=== PATIENT | female | born 1970 | race Caucasian/White ===

== ENCOUNTER → 2018-09-17 | Day surgery (SDC) | payer BC, OTHER ==
[2018-09-11 14:05] VITALS: BMI 23.8
[~2018-09-17] MED LIST: ALPRAZolam 0.25 MG TAB PO PRN; ALPRAZolam 0.5 MG TAB PO PRN; ASPIRIN 325 MG TAB PO STA; ATORVASTATIN 80 MG TAB PO STA; HEPARIN SODIUM 1,000 UN/ML (10ML VL) IV ONE; HEPARIN SODIUM 1,000 UN/ML (10ML VL) ONE; IOPAMIDOL-370 100ML BTL INJ ONE; LIDOCAINE 1% INJ 10MG/ML (20 ML MDV) ONE; LIDOCAINE 1% INJ 10MG/ML (20 ML MDV) SQ ONE; MIDAZOLAM 2 MG/2 ML VIAL IV ONE; NITROGLYCERIN SL TABS 0.4 MG TAB SUBLINGUAL PRN; SODIUM CHLORIDE 0.9% 1,000 ML IV SCH; SODIUM CHLORIDE 0.9% 1,000 ML in EMPTY BAG 1 BAG IV ONE; VERAPAMIL 2.5 MG/ML 2 ML AMP ONE
[2018-09-17 09:53] VITALS: RESP 18; TEMP 98.3
[2018-09-17] MEDS: VERAPAMIL SYRINGE (5 MG/10 ML) INTRAARTER ONE ×3 (10:34→10:45)
--- NOTE | 2018-09-17 11:36 | CC ---
CARDIAC CATHETERIZATION REPORT DATE OF SERVICE: 09/17/2018 PROCEDURE: Left heart catheterization and coronary angiography. PERFORMED BY: Dr. Desean Beach. Moderate conscious sedation time was 19 minutes. Patient was administered Versed, oxygen saturation, hemodynamics and EKG were monitored closely. CLINICAL INFORMATION: Mrs Alondra Killian is a 48-year-old lady with a recent diagnosis of dilated cardiomyopathy and ventricular tachycardia, on a life vest. She was advised coronary angiography after due discussion and evaluation by Dr. Javier. I met the patient last week and reviewed with her the rationale, risks, benefits, and options related to cardiac cath. She understood all details and wished to proceed with the procedure. PROCEDURE NOTE: Under local anesthesia and strict aseptic precautions, a 6-Setswana introducer was placed in the right radial artery. Using a JL3.5 and JR3.5 diagnostic catheters, I performed selective coronary angiography and the same right catheter was used to check LV pressures. LV gram was not performed. The catheter and sheath was taken out and a VASC band applied as per protocol. The saturation of the fingers of the right hand was 96%. Patient received 1500 units of heparin intravenously. She tolerated the procedure well without complications. CARDIAC CATHETERIZATION FINDINGS: The left ventricular end-diastolic pressure was 6 mmHg without any gradient across the aortic valve. CORONARY ANGIOGRAPHY FINDINGS: RIGHT CORONARY ARTERY: Large dominant vessel distally bifurcates into PDA and PLV. No significant disease. LEFT MAIN CORONARY ARTERY: Short patent disease-free vessel that bifurcates into LAD and circumflex. LEFT ANTERIOR DESCENDING CORONARY ARTERY: Good caliber vessel extends along the anterior wall, gives off septal and diagonal branches, runs all the way to the apex, has minor irregularities, no significant disease. LEFT POSTERIOR CIRCUMFLEX CORONARY ARTERY: A nondominant vessel, gives off a single obtuse marginal that runs laterally and then continues distally as a posterolateral branch. Minor irregularities. No significant disease. LEFT VENTRICULOGRAM: This was not performed. FINAL IMPRESSION: This patient has a right dominant system. Normal filling pressures. No gradient across the aortic valve and no obstructive coronary artery disease. RECOMMENDATION: Findings were discussed with the patient and family. She does not have any obstructive CAD. Procedure was performed uneventfully. She will be discharged around 6 pm and follow up with Dr. Javier next Saturday for a followup office visit. We. She will continue current medications and Life Vest. Discharge instructions were also given. MMODL / IJN: [id number] /
[2018-09-17 18:34] VITALS: BP 110/62; PULSE 74
--- NOTE | 2018-09-19 20:01 | ECHOF ---
Referral Reason:R/O CARDIOMYOPATHY MEASUREMENTS -------- HEIGHT: 165.1 cm WEIGHT: 64.9 kg BP: 95/69 RVIDd: 1.6 cm (< 3.3) IVSd: 1.1 cm (0.6 - 1.1) LVIDd: 5.8 cm (3.9 - 5.3) LVPWd: 1.1 cm (0.6 - 1.1) IVSs: 1.2 cm LVIDs: 4.9 cm LVPWs: 1.2 cm LAESV Index (A-L): 12.98 ml/m Ao Diam: 3.7 cm (2.0 - 3.7) AV Cusp: 1.6 cm (1.5 - 2.6) LA Diam: 1.9 cm (2.7 - 3.8) MV EXCURSION: 20.868 mm (> 18.000) MV EF SLOPE: 90 mm/s (70 - 150) EPSS: 1.4 cm MV E Michael: 0.59 m/s MV DecT: 204 ms MV A Michael: 0.65 m/s MV E/A Ratio: 0.91 RAP: 5.00 mmHg RVSP: 18.53 mmHg FINDINGS -------- Sinus rhythm. This was a technically adequate study. The left ventricle is moderately dilated. Left ventricular wall thickness is normal. There is mod erate global hypokinesis of LV . Overall left ventricular systolic function is moderate-severely im paired with, an EF between 30 - 35 %. 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 The right ventricle is normal in size and function. Normal LA size by volume 22+/-6 ml/m2. The right atrium is normal in size. 3 ml of Lumason was utilized for enhancement of images. Aortic valve is trileaflet and is mildly thickened. There is no evidence of aortic regurgitation. There is no evidence of aortic stenosis. The mitral valve leaflets are mildly thickened. Mild mitral annular calcification present. Mild-t o-moderate mitral regurgitation is present. Trace tricuspid regurgitation present. Right ventricular systolic pressure is normal at < 35 mmHg. There is no evidence of pulmonary hypertension. Trace/mild (physiologic) pulmonic regurgitation. The aortic root size is normal. Normal inferior vena cava with normal inspiratory collapse consistent with estimated right atrial pre ssure of 5 mmHg. There is no pericardial effusion. CONCLUSIONS -------- 1. Sinus rhythm. 2. This was a technically adequate study. 3. The left ventricle is moderately dilated. 4. Left ventricular wall thickness is normal. 5. There is moderate global hypokinesis of LV . 6. Overall left ventricular systolic function is moderate-severely impaired with, an EF between 30 - 35 %. 7. 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 8. Normal LA size by volume 22+/-6 ml/m2. 9. 3 ml of Lumason was utilized for enhancement of images. 10. Aortic valve is trileaflet and is mildly thickened. 11. The mitral valve leaflets are mildly thickened. 12. Mild mitral annular calcification present. 13. Aveh-pt-bhyxgsts mitral regurgitation is present. 14. Trace tricuspid regurgitation present. 15. Right ventricular systolic pressure is normal at < 35 mmHg. 16. There is no evidence of pulmonary hypertension. 17. Trace/mild (physiologic) pulmonic regurgitation. 18. The aortic root size is normal. 19. There is no pericardial effusion. DOCTOR OF OPTOMETRY: Tru Hebert RDCS
== END | disposition home or self-care (01) ==
LOC: CATHCVL 09:32
PROVIDERS: ATTEND Internal Medicine Interventional Cardiology
DX: I08.1 Rheumatic disorders of both mitral and tricuspid valves (principal); I42.0 Dilated cardiomyopathy; I47.2 Ventricular tachycardia; I50.21 Acute systolic (congestive) heart failure; Z79.899 Other long term (current) drug therapy
CPT/HCPCS: 93306; 93458; 81025; C1894 ×2; C1769; J2250; J2001; J1644; Q9950; Q9967

== ENCOUNTER 2018-10-23 13:22 | Observation (INO) | payer BC, OTHER ==
[2018-10-23] MEDS ORDERED: ASPIRIN 81 MG PO STA (13:36)
[2018-10-23] MEDS ORDERED: NITROGLYCERIN SL TABS 0.4 MG TAB SUBLINGUAL STA (13:36)
--- NOTE | 2018-10-23 13:39 | ED ---
Chest Pain HPI - General Chief Complaint: Chest Pain Stated Complaint: chest pain Time Seen by Provider: 10/23/18 13:30 Source: patient, RN notes reviewed Mode of arrival: ambulatory - History of Present Illness Initial Comments: Is a 48-year-old female history of a dilated heart but no prior history of heart attacks lung problems she is a nonsmoker no family history of heart disease at early age who for the past 3 days had intermittent episodes of achy chest discomfort going to her left arm. It is worse in 6-7/10 severity currently is 4/10 she has associated shortness of breath with it and exertional dyspnea the symptoms occur both at rest and with activity. No cough no fevers chills sweats nausea vomiting or other symptoms reported. MD Complaint: chest pain - Related Data Home Medications Medication Instructions Recorded Confirmed Atorvastatin [Lipitor] 10 mg PO W/SUPPER 10/23/18 10/23/18 Carvedilol [Coreg] 1.5625 mg PO BID 10/23/18 10/23/18 Furosemide [Lasix] 20 mg PO DAILY 10/23/18 10/23/18 Ivabradine HCl [Corlanor] 5 mg PO DAILY 10/23/18 10/23/18 Spironolactone [Aldactone] 25 mg PO DAILY 10/23/18 10/23/18 Allergies Allergy/AdvReac Type Severity Reaction Status Date / Time No Known Allergies Allergy Verified 10/23/18 13:41 Review of Systems ROS Statement: Those systems with pertinent positive or pertinent negative responses have been documented in the HPI. ROS Other: All systems not noted in ROS Statement are negative. EKG Findings - EKG Results: EKG: interpreted by LEMUEL, sinus rhythm (Sinus rhythm rate is 76. Ago 134 QRS duration 74 QT since QTC 396/[address] this time.) Past Medical History Past Medical History: Chest Pain / Angina Additional Past Medical History / Comment(s): enlarged heart, SOB, History of Any Multi-Drug Resistant Organisms: None Reported Past Surgical History: Cholecystectomy Past Anesthesia/Blood Transfusion Reactions: No Reported Reaction Past Psychological History: No Psychological Hx Reported Smoking Status: Never smoker Past Alcohol Use History: None Reported Past Drug Use History: None Reported - Past Family History Mother Family Medical History: No Reported History General Exam - General Exam Comments Initial Comments: This a well-developed well-nourished awake alert oriented 3 female General appearance: alert, anxious Head exam: Present: atraumatic, normocephalic, normal inspection Eye exam: Present: normal appearance, PERRL, EOMI. Absent: scleral icterus, conjunctival injection, periorbital swelling ENT exam: Present: normal exam, mucous membranes moist Neck exam: Present: normal inspection, full ROM, other (No stridor JVD or bruits). Absent: tenderness, meningismus, lymphadenopathy Respiratory exam: Present: normal lung sounds bilaterally. Absent: respiratory distress, wheezes, rales, rhonchi, stridor, chest wall tenderness Cardiovascular Exam: Present: regular rate, normal rhythm, normal heart sounds. Absent: systolic murmur, diastolic murmur, rubs, gallop, clicks GI/Abdominal exam: Present: soft, normal bowel sounds. Absent: distended, tenderness, guarding, rebound, rigid Extremities exam: Present: normal inspection, full ROM, normal capillary refill. Absent: tenderness, pedal edema, joint swelling, calf tenderness Back exam: Present: normal inspection Neurological exam: Present: alert, oriented X3, CN II-XII intact Psychiatric exam: Present: normal affect, normal mood Skin exam: Present: warm, dry, intact, normal color. Absent: rash Course Vital Signs 10/23/18 10/23/18 10/23/18 13:25 13:34 13:52 Temperature 98 F Pulse Rate 73 74 Pulse Rate [ 72 Bilateral Director Auto ] Respiratory 18 18 18 Rate Blood Pressure 117/77 106/61 O2 Sat by Pulse 99 100 Oximetry 10/23/18 14:54 Temperature Pulse Rate 72 Pulse Rate [ Bilateral Director Auto ] Respiratory 18 Rate Blood Pressure 103/72 O2 Sat by Pulse 100 Oximetry - Reevaluation(s) Reevaluation #1: 10/23/18 15:48 Reevaluation the patient after the initial treatment reveals patient is pain- free at this time she did seem to respond to the nitroglycerin. Reevaluation #2: 10/23/18 15:49 telephone cleaner indicated for ruling out dysrhythmia. Patient did present with complaints of chest pain agreed to her left arm. Initial rate was 75 with no evidence of atrial or ventricular dysrhythmia. [facility] are reviewed no acute findings. I did discuss findings with the patient and her . Patient will be admitted for evaluation by cardiology at [facility] discuss case Dr. Cotto who and to the emergency department see the patient. The presentation is consistent with acute coronary syndrome. Critical Care Time Critical Care Time: Yes Critical Care Time: 30 minutes of critical care time which includes initial presentation with history physical labs x-rays several reevaluation the patient response to therapy. Discussed with the family regarding findings discussion with the admitting physician admission orders and documentation of the above Disposition Clinical Impression: ACS (acute coronary syndrome), Unstable angina pectoris Disposition: ADMITTED IP TO THIS HOSP Condition: Fair Referrals: Willy Li DO [Primary Care Provider] - 1-2 days
[2018-10-23 14:09] LABS: Basophils % (A) 1 %; Eosinophils # (A) 0.1 k/uL (0-0.7); Eosinophils % (A) 3 %; HCT 40.1 % (34.0-46.0); HGB 14.1 gm/dL (11.4-16.0); Lymphocytes # (A) 1.3 k/uL (1.0-4.8); Lymphocytes % (A) 28 %; MCH 28.5 pg (25.0-35.0); MCV 81.4 fL (80.0-100.0); Mean Platelet Volume 10.1; Monocytes # (A) 0.3 k/uL (0-1.0); Monocytes % (A) 7 %; Neutrophils # (A) 2.7 k/uL (1.3-7.7); Neutrophils % (A) 59 %; Platelet Count 174 k/uL (150-450); RBC 4.93 m/uL (3.80-5.40); RDW 15.6 % (11.5-15.5); WBC 4.5 k/uL (3.8-10.6)
[2018-10-23 14:23] LABS: Albumin 4.2 g/dL (3.5-5.0); Calcium 9.3 mg/dL (8.4-10.2); Magnesium 1.9 mg/dL (1.6-2.3); Potassium 3.9 mmol/L (3.5-5.1); Total Bilirubin 0.6 mg/dL (0.2-1.3); Total Protein 7.3 g/dL (6.3-8.2)
--- NOTE | 2018-10-23 14:30 | XR ---
EXAMINATION TYPE: XR chest 2V DATE OF EXAM: 10/23/2018 COMPARISON: Prior chest x-ray 08/15/2014 HISTORY: Chest pain TECHNIQUE: Frontal and lateral views of the chest are obtained. FINDINGS: There is no focal air space opacity, pleural effusion, or pneumothorax seen. The cardiac silhouette size is within normal limits. Surgical clips are present in the right upper quadrant. Ther e are overlying cardiac leads. There is a spinal curvature present. Strand-like densities in the uppe r lobes are stable. The aorta is dense. The osseous structures are intact. IMPRESSION: No acute cardiopulmonary process. Probable lung scarring.
[2018-10-23 14:38] LABS: D-Dimer 0.49 mg/L FEU (<0.60); INR 0.9 (<1.2); Partial Thromboplastin Time 25.5 sec (22.0-30.0); Prothrombin Time 10.2 sec (9.0-12.0)
[2018-10-23] MEDS ORDERED: HEPARIN SODIUM,PORCINE 5,000 UNIT/ML 1 ML VIAL IV ONE (15:52)
[2018-10-23] MEDS ORDERED: NITROGLYCERIN SL TABS 0.4 MG TAB SUBLINGUAL PRN (15:52)
[2018-10-23] MEDS ORDERED: NITROGLYCERIN OINT 1 INCH/GM PACKET TOPICAL STA (15:55)
[2018-10-23] MEDS ORDERED: HEPARIN SOD,PORK IN 0.45% NACL 25,000 UNIT in 0.45% NACL 1 250ML.BAG IV SCH (16:00)
[2018-10-23] MEDS ORDERED: SODIUM CHLORIDE 0.9% 1,000 ML IV SCH (16:00)
[2018-10-23] MEDS ORDERED: TEMAZEPAM 15 MG CAP PO PRN (16:32)
[2018-10-23] MEDS ORDERED: ATORVASTATIN 10 MG TAB PO SCH (17:30)
--- NOTE | 2018-10-23 18:09 | HP ---
HISTORY AND PHYSICAL DATE OF SERVICE: 10/23/2018 HISTORY OF PRESENT ILLNESS: This 48-year-old woman with a past medical history of multiple medical problems, including dilated cardiomyopathy, possibly viral, history of shortness of breath, cholecystomy, being followed by Dr. Li in the outpatient setting, has also been evaluated by Dr. Javier in the outpatient setting. Currently the patient is complaining of left-sided chest pain for the last 3 days, intermittent episodes, which was aching to sharp in character, 7 to 10 in intensity, radiating to the upper arm and shoulder. The patient also had some exertional breath sounds and the patient came to [facility] and was admitted for further evaluation and treatment. EKG showed nonspecific ST-T changes. Troponins are negative at this time. There is no history of any fever, rigor or chills. No history of headache, loss of consciousness, seizures. The patient also reports significant stress. PAST MEDICAL HISTORY: 1. History of chest pain, angina. 2. History of dilated cardiomyopathy. 3. History of cholecystectomy. MEDICATIONS: Medications prior to admission include: 1. Aldactone 25 mg p.o. daily. 2. Corlanor 5 mg p.o. daily. 3. Coreg 1.5625 mg p.o. b.i.d. 4. Lasix 20 mg p.o. daily. 5. Lipitor 10 mg at supper. ALLERGIES: NONE. FAMILY HISTORY: No history of heart disease or strokes in the family. SOCIAL HISTORY: No history of smoking. No history of alcohol intake. REVIEW OF SYSTEMS: ENT: No diminished hearing. No diminished vision. CARDIOVASCULAR SYSTEM: As mentioned earlier. RESPIRATORY SYSTEM: As mentioned earlier. GI: No nausea, vomiting. No diarrhea. : No dysuria or retention. NERVOUS SYSTEM: No numbness, weakness. ALLERGY/IMMUNOLOGY: No asthma, hayfever. MUSCULOSKELETAL: As mentioned earlier. HEMATOLOGY/ONCOLOGY/PSYCHIATRY: As mentioned earlier. PHYSICAL EXAMINATION: Patient is alert, oriented x3. Pulse 72, blood pressure 103/72, respiration 18, temperature normal, pulse ox 100% on 2 L. HEENT: Conjunctivae normal. NECK: No jugular venous distention. No carotid bruit. No lymph node enlargement. CARDIOVASCULAR SYSTEM: S1, S2 muffled. No S3. No S4. RESPIRATORY SYSTEM: Breath sounds diminished at the bases. No rhonchi. No crackles. ABDOMEN: Soft, non-tender. No mass palpable. LEGS: No edema. No swelling. NERVOUS SYSTEM: Higher functions as mentioned earlier. Moves all 4 limbs. No focal motor or sensory deficit. LYMPHATICS: No lymph node palpable in neck, axillae or groin. SKIN: No ulcer, rash, bleeding. JOINTS: No active deforming arthropathy. LABS: CBC within normal limits. BMP shows glucose 100. Troponin noted. EKG noted, reviewed. ASSESSMENT: 1. Chest pain, possible unstable angina. 2. History of dilated cardiomyopathy. 3. History of chest pain, angina. 4. History of cholecystectomy. RECOMMENDATIONS AND DISCUSSION: In this 48-year-old woman who presented with multiple medical issues, we will monitor the patient closely, continue the current management, continue with symptomatic treatment, unstable angina protocol. The patient had a previous cardiac catheterization also. However, I would recommend repeat troponins. Cardiology consultation. Symptomatic treatment. Resume the home medications. Prognosis guarded because of multiple complex medical issues. Further recommendations to follow. A copy of this dictation is being forwarded to Dr. Li, who is the primary physician. MMODL / IJN: [id number] /
[2018-10-23] MEDS: NITROGLYCERIN OINT 1 INCH/GM PACKET TOPICAL SCH ×2 (19:42→22:36)
[2018-10-23] MEDS: CARVEDILOL 1.563 MG TAB PO SCH (20:38)
[2018-10-23] MEDS ORDERED: CORLANOR 5 MG PO SCH (21:00)
[2018-10-24] MEDS: NITROGLYCERIN OINT 1 INCH/GM PACKET TOPICAL SCH ×2 (05:26→12:44)
[2018-10-24 07:33] VITALS: RESP 16
[2018-10-24 07:53] LABS: Basophils % (A) 1 %; Eosinophils # (A) 0.2 k/uL (0-0.7); Eosinophils % (A) 6 %; HCT 35.5 % (34.0-46.0); HGB 12.3 gm/dL (11.4-16.0); Lymphocytes % (A) 33 %; MCH 28.4 pg (25.0-35.0); MCHC 34.7 g/dL (31.0-37.0); Mean Platelet Volume 9.9; Monocytes # (A) 0.3 k/uL (0-1.0); Monocytes % (A) 9 %; Neutrophils # (A) 1.5 k/uL (1.3-7.7); Neutrophils % (A) 49 %; Platelet Count 142 k/uL (150-450); RBC 4.33 m/uL (3.80-5.40); RDW 15.7 % (11.5-15.5)
--- NOTE | 2018-10-24 07:53 | P.CRDCN ---
History of Present Illness Consult date: 10/24/18 History of present illness: This is a 48-year-old female with history of nonischemic cardiac myopathy and nonsustained V. tach who is wearing a LifeVest at this time. Patient had a cardiac catheterization in August of this year for evaluation of ischemic heart disease. Because of chest pain and also nonsustained V. tach. She was not found to have nonobstructive coronary artery disease. Patient comes now with similar chest pains on the left side is somewhat radiation of the left arm. Her EKGs did not reveal any acute changes. Cardiac enzymes are negative. At this time, Patient is very comfortable. Her d-dimer is within normal limits. No further cardiac workup is suggested. Patient could be discharged home. Follow-up with the Dr. Javier within a week Review of Systems As per the chart Past Medical History Past Medical History: Chest Pain / Angina Additional Past Medical History / Comment(s): enlarged heart, SOB, nonischemic cardiomyopathy, history of ventricular tachycardia History of Any Multi-Drug Resistant Organisms: None Reported Past Surgical History: Cholecystectomy Past Anesthesia/Blood Transfusion Reactions: No Reported Reaction Past Psychological History: No Psychological Hx Reported Smoking Status: Never smoker Past Alcohol Use History: None Reported Past Drug Use History: None Reported - Past Family History Mother Family Medical History: No Reported History Medications and Allergies Home Medications Medication Instructions Recorded Confirmed Type Atorvastatin [Lipitor] 10 mg PO W/SUPPER 10/23/18 10/23/18 History Carvedilol [Coreg] 1.5625 mg PO BID 10/23/18 10/23/18 History Furosemide [Lasix] 20 mg PO DAILY 10/23/18 10/23/18 History Ivabradine HCl [Corlanor] 5 mg PO BID 10/23/18 10/23/18 History Spironolactone [Aldactone] 25 mg PO DAILY 10/23/18 10/23/18 History Allergies Allergy/AdvReac Type Severity Reaction Status Date / Time No Known Allergies Allergy Verified 10/23/18 13:41 Physical Exam Vitals: Vital Signs Temp Pulse Pulse Pulse Resp BP BP 10/24/18 07:15 97.8 F 56 L 16 10/24/18 02:58 18 10/24/18 02:45 97.8 F 50 L 18 88/53 10/23/18 23:51 18 10/23/18 23:32 97.9 F 61 18 91/58 10/23/18 20:00 18 10/23/18 19:12 98.1 F 59 L 18 103/69 10/23/18 16:45 98.1 F 53 L 18 111/77 10/23/18 16:27 60 18 10/23/18 14:54 72 18 103/72 10/23/18 13:52 74 18 106/61 10/23/18 13:34 72 18 10/23/18 13:25 98 F 73 18 117/77 BP Pulse Ox 10/24/18 07:15 95/55 98 10/24/18 02:58 10/24/18 02:45 98 10/23/18 23:51 10/23/18 23:32 98 10/23/18 20:00 10/23/18 19:12 98 10/23/18 16:45 97 10/23/18 16:27 100 10/23/18 14:54 100 10/23/18 13:52 100 10/23/18 13:34 10/23/18 13:25 99 Intake and Output 10/23/18 10/24/18 10/24/18 22:59 06:59 14:59 Intake Total 444 80.993 Balance 444 80.993 Intake: Intake, IV Titration 80.993 Amount Heparin Sod,Pork in 0.45% 80.993 NaCl 25,000 unit In 0.45 % NaCl 1 250ml.bag @ 12 UNITS/KG/HR 7.838 mls/hr IV .Q24H [facility] Rx#: [id number] Oral 444 Other: Voiding Method Toilet Toilet # Voids 1 1 GENERAL EXAM: Patient is alert and oriented and doesn't appear to be in any acute distress HEENT: Normocephalic. Normal reaction of pupils, equal size, normal range of extraocular motion. No erythema or exudates in the throat. NECK: No masses, no nuchal rigidity. CHEST: No chest wall deformity. LUNGS: Equal air entry with no crackles or wheeze. HEART: S1 and S2 normal with no audible mumurs or gallops. Regular rhythm, fem orals equal on both sides.. ABDOMEN: No hepatosplenomegaly, normal bowel sounds, no guarding or rigidity. SKIN: No rashes CENTRAL NERVOUS SYSTEM: No focal deficits. EXTREMITIES: No cyanosis, clubbing or edema. Results 10/23/18 13:45 10/23/18 13:45 Cardiac Enzymes 10/23/18 10/23/18 10/23/18 Range/Units 13:45 13:45 21:09 AST 24 (14-36) U/L Troponin I <0.012 <0.012 (0.000-0.034) ng/mL 10/24/18 Range/Units 01:51 AST (14-36) U/L Troponin I <0.012 (0.000-0.034) ng/mL Coagulation 10/23/18 10/23/18 Range/Units 13:45 21:09 PT 10.2 (9.0-12.0) sec APTT 25.5 84.7 H (22.0-30.0) sec CBC 10/23/18 Range/Units 13:45 WBC 4.5 (3.8-10.6) k/uL RBC 4.93 (3.80-5.40) m/uL Hgb 14.1 (11.4-16.0) gm/dL Hct 40.1 (34.0-46.0) % Plt Count 174 (150-450) k/uL Comprehensive Metabolic Panel 10/23/18 Range/Units 13:45 Sodium 141 (137-145) mmol/L Potassium 3.9 (3.5-5.1) mmol/L Chloride 105 (98-107) mmol/L Carbon Dioxide 26 (22-30) mmol/L BUN 17 (7-17) mg/dL Creatinine 0.92 (0.52-1.04) mg/dL Glucose 100 H (74-99) mg/dL Calcium 9.3 (8.4-10.2) mg/dL AST 24 (14-36) U/L ALT 25 (9-52) U/L Alkaline Phosphatase 86 (38-126) U/L Total Protein 7.3 (6.3-8.2) g/dL Albumin 4.2 (3.5-5.0) g/dL Current Medications Generic Name Dose Route Start Last Admin Trade Name Freq PRN Reason Stop Dose Admin Aspirin 325 mg 10/24/18 09:00 Aspirin PO DAILY CINDY Atorvastatin Calcium 10 mg 10/23/18 17:30 10/23/18 20:38 Lipitor PO Not Given W/SUPPER [facility] Carvedilol 1.563 mg 10/23/18 17:30 10/23/18 20:38 Coreg PO Not Given BID-W/MEALS [facility] Furosemide 20 mg 10/24/18 09:00 Lasix PO DAILY [facility] Heparin Sodium/Sodium Chloride 250 mls @ 7.838 mls/hr 10/23/18 16:00 10/24/18 02:41 25,000 unit/ Sodium Chloride IV 10 units/kg/hr .Q24H CINDY 6.532 mls/hr Titration Protocol 12 UNITS/KG/HR Sodium Chloride 1,000 mls @ 20 mls/hr 10/23/18 16:00 10/23/18 16:26 Saline 0.9% IV 20 mls/hr .Q24H CINDY Administration Nitroglycerin 0.5 inch 10/23/18 18:00 10/24/18 05:26 Nitro-Bid Oint TOPICAL Not Given Q6HR [facility] Nitroglycerin 0.4 mg 10/23/18 15:52 Nitrostat SUBLINGUAL Q5M PRN Chest Pain Corlanor 5mg 5 mg 10/23/18 21:00 10/23/18 20:37 PO 5 mg BID CINDY Administration Spironolactone 25 mg 10/24/18 09:00 Aldactone PO DAILY [facility] Temazepam 15 mg 10/23/18 16:32 Restoril PO HS PRN Insomnia Intake and Output 10/23/18 10/24/18 10/24/18 22:59 06:59 14:59 Intake Total 444 80.993 Balance 444 80.993 Intake: Intake, IV Titration 80.993 Amount Heparin Sod,Pork in 0.45% 80.993 NaCl 25,000 unit In 0.45 % NaCl 1 250ml.bag @ 12 UNITS/KG/HR 7.838 mls/hr IV .Q24H [facility] Rx#: [id number] Oral 444 Other: Voiding Method Toilet Toilet # Voids 1 1 10/23/18 13:45 10/23/18 13:45 EKG Interpretations (text) Sinus rhythm Assessment and Plan (1) Atypical chest pain Current Visit: Yes Status: Acute Code(s): R07.89 - OTHER CHEST PAIN SNOMED Code(s): 127186886 (2) Nonischemic cardiomyopathy Current Visit: Yes Status: Acute Code(s): I42.8 - OTHER CARDIOMYOPATHIES SNOMED Code(s): 37811851 (3) History of ventricular tachycardia Current Visit: Yes Status: Acute Code(s): Z86.79 - PERSONAL HISTORY OF OTHER DISEASES OF THE CIRCULATORY SYSTEM SNOMED Code(s): 033161954123106 Plan: Patient's cardiac enzymes and EKGs are normal. Patient had a normal Cardec cath about 2 months ago. Her d-dimer is normal. Patient is free of any chest pain at this time. Patient will be discharged home and have follow-up with Dr. Javier within a week
[2018-10-24 08:00] LABS: Anion Gap 7 mmol/L; Blood Urea Nitrogen 20 mg/dL (7-17); Calcium 8.8 mg/dL (8.4-10.2); Carbon Dioxide 26 mmol/L (22-30); Chloride 107 mmol/L (98-107); Cholesterol 94 mg/dL (<200); Glucose 91 mg/dL (74-99); HDL Cholesterol 42 mg/dL (40-60); LDL Cholesterol,Calculated 42 mg/dL (0-99); Potassium 3.8 mmol/L (3.5-5.1); Sodium 140 mmol/L (137-145); Triglycerides 52 mg/dL (<150)
[2018-10-24] MEDS: CARVEDILOL 1.563 MG TAB PO SCH (08:24)
[2018-10-24] MEDS ORDERED: FUROSEMIDE 20 MG TAB PO SCH (09:00)
[2018-10-24] MEDS ORDERED: ASPIRIN 325 MG TAB PO SCH (09:00)
[2018-10-24] MEDS ORDERED: CORLANOR 5 MG PO SCH ×2 (09:00→12:00)
[2018-10-24] MEDS ORDERED: SPIRONOLACTONE 25 MG TAB PO SCH ×2 (09:00→12:00)
[2018-10-24 11:52] VITALS: BP 97/62; TEMP 97.6
[2018-10-24 12:04] VITALS: PULSE 72
--- NOTE | 2018-10-25 12:41 | DS ---
DISCHARGE SUMMARY DATE OF SERVICE: 10/24/2018 FINAL DIAGNOSES: 1. Chest pain, myocardial infarction ruled out, possibly musculoskeletal. 2. History of dilated cardiomyopathy. 3. History of chest pain, angina. 4. History of recent cardiac catheterization. 5. History of cholecystectomy. DISCHARGE DISPOSITION: The patient will be discharged in a stable condition with guarded prognosis. HISTORY OF PRESENT ILLNESS: This is a 48-year-old woman with a past medical history of multiple medical problems being followed by Dr. Li in the outpatient setting, was admitted with chest pain. Myocardial infarction ruled out and Cardiology saw the patient. Recommend discharge and continue outpatient followup. Patient had a recent cardiac cath that showed normal coronaries, apparently. On exam, vital signs are stable. CARDIOVASCULAR SYSTEM: S1, S2. ABDOMEN: Soft. NERVOUS SYSTEM: No focal deficits. Discharge diet is cardiac diet. Activity limited until followup. Follow up with Dr. Li in 2-3 days. Follow up with the campus recruiter as recommended. MEDICATIONS: 1. Aldactone 25 mg p.o. daily. 2. Coreg 1.562 mg p.o. b.i.d. 3. Ivabradine 5 mg p.o. b.i.d. 4. Lasix 20 mg p.o. daily. 5. Lipitor 10 mg with supper. MMODL / IJN: [id number] /
== END 2018-10-24 12:47 | disposition home or self-care (01) ==
LOC: EC 13:22 → 1SOBS 15:52
PROVIDERS: ADMIT Hospitalist; ATTEND Hospitalist
DX: R07.89 Other chest pain (principal); I42.0 Dilated cardiomyopathy; I47.2 Ventricular tachycardia; Z79.899 Other long term (current) drug therapy; Z90.49 Acquired absence of other specified parts of digestive tract; Z97.8 Presence of other specified devices
CPT/HCPCS: 96366 ×2; 96376; 96365; 99291; 36415; 93005; 85379; 83880; 80061; 80053; 80048; 82550; 83735; 84484 ×2; 85025 ×2; 85610; 85730 ×2; 71046; G0378 ×2; J1644 ×2

== ENCOUNTER 2019-01-29 10:26 | Day surgery (SDC) | payer BC, OTHER ==
[~2019-01-29 10:26] MED LIST changes: -ALPRAZolam 0.25 MG TAB PO PRN; -ALPRAZolam 0.5 MG TAB PO PRN; -ASPIRIN 325 MG TAB PO STA; -ATORVASTATIN 80 MG TAB PO STA; -HEPARIN SODIUM 1,000 UN/ML (10ML VL) IV ONE; -HEPARIN SODIUM 1,000 UN/ML (10ML VL) ONE; -IOPAMIDOL-370 100ML BTL INJ ONE; +LACTATED RINGERS 1,000 ML IV SCH; +LIDOCAINE 1% 20 ML VIAL (10MG/ML) FOR IV START INTRADERMA PRN; -LIDOCAINE 1% INJ 10MG/ML (20 ML MDV) ONE; -LIDOCAINE 1% INJ 10MG/ML (20 ML MDV) SQ ONE; -MIDAZOLAM 2 MG/2 ML VIAL IV ONE; -NITROGLYCERIN SL TABS 0.4 MG TAB SUBLINGUAL PRN; -SODIUM CHLORIDE 0.9% 1,000 ML in EMPTY BAG 1 BAG IV ONE; -VERAPAMIL 2.5 MG/ML 2 ML AMP ONE; +ceFAZolin 1,000 MG in SODIUM CHLORIDE 0.9% IRRIGATIO 250 ML IRRIGATION ONE; +ceFAZolin IN SWFI 2 GM/20 ML SYRINGE IVP ONE
[2019-01-29] MEDS ORDERED: IOPAMIDOL-250 50ML BTL IV ONE (12:15)
[2019-01-29] MEDS ORDERED: PHENYLEPHRINE-0.9% NACL SYG 1 MG/10 ML SYRINGE ONE (12:19)
[2019-01-29] MEDS ORDERED: fentaNYL (PF) 50 MCG/ML 2 ML AMP ONE (12:19)
[2019-01-29] MEDS ORDERED: LIDOCAINE 1% INJ 10MG/ML (20 ML MDV) ONE (12:19)
[2019-01-29] MEDS ORDERED: PROPOFOL 10 MG/ML 20 ML VIAL IV ONE (12:19)
[2019-01-29] MEDS ORDERED: MIDAZOLAM 2 MG/2 ML VIAL ONE (12:19)
[2019-01-29] MEDS ORDERED: GLYCOPYRROLATE 0.2 MG/ML 2 ML VIAL ONE (12:19)
[2019-01-29] MEDS ORDERED: LIDOCAINE 1% INJ 10MG/ML (20 ML MDV) SQ ONE ×2 (12:57→13:09)
[2019-01-29] MEDS ORDERED: LIDOCAINE 1% (PF) 10 MG/ML (30 ML SDV) SQ ONE (13:09)
[2019-01-29] MEDS ORDERED: ACETAMINOPHEN TAB 325 MG TAB PO PRN ×2 (14:06→14:11)
[2019-01-29] MEDS ORDERED: ACETAMINOPHEN IV (For NPO) 1,000 MG in EMPTY BAG 1 BAG IVPB ONE (14:11)
[2019-01-29] MEDS ORDERED: SODIUM CHLORIDE 0.9% 500 ML 500 ML IV ONE (14:15)
[2019-01-29] MEDS: HYDROcodone/APAP 5-325MG 1 EACH TAB PO PRN (14:40)
[2019-01-29 16:42] VITALS: BMI 25.3
--- NOTE | 2019-01-29 16:52 | P.PCN ---
Preoperative Diagnosis: Left upper extremity venogram Left upper extremity venogram was performed. 50 mL of dye was injected in the left upper extremity and a patent left subclavian left cephalic left axillary innominate veins noted SVC patent
[2019-01-29] MEDS ORDERED: ATORVASTATIN 10 MG TAB PO SCH (17:30)
[2019-01-29] MEDS: CARVEDILOL 1.563 MG TAB PO SCH (18:42)
[2019-01-29] MEDS: ceFAZolin IN SWFI 2 GM/20 ML SYRINGE IVP SCH (18:43)
[2019-01-29 19:18] VITALS: RESP 16
[2019-01-29] MEDS: IVABRADINE HCL PO SCH (20:20)
[2019-01-30] MEDS: ceFAZolin IN SWFI 2 GM/20 ML SYRINGE IVP SCH ×3 (01:12→12:10)
--- NOTE | 2019-01-30 07:53 | XR ---
EXAMINATION TYPE: XR chest 2V DATE OF EXAM: 01/30/2019 COMPARISON: 10/23/2018 TECHNIQUE: PA and lateral views submitted. HISTORY: Lead placement check FINDINGS: The lungs are clear and there is no pneumothorax, pleural effusion, or focal pneumonia. Pacemaker s een. Hyperinflation suggests COPD. No overt failure. IMPRESSION: 1. No acute process. Correlate for COPD
[2019-01-30] MEDS: CARVEDILOL 1.563 MG TAB PO SCH (07:59)
[2019-01-30] MEDS: HYDROcodone/APAP 5-325MG 1 EACH TAB PO PRN (08:03)
--- NOTE | 2019-01-30 08:08 | CE ---
CARDIAC ELECTROPHYSIOLOGY REPORT This is a 48-year-old female who has post viral myocarditis and cardiomyopathy that has not improved despite over 6 months of medical treatment. She also has a low blood pressure and is on low-dose of cardiomyopathy medications for this reason. She is also on Ivabradine which has helped her significantly. There has been improvement in her heart failure status class 2 heart failure symptoms, but the LV systolic dysfunction remained severely reduced despite medical treatment for over 6 months now. She also has a history of false nonsustained ventricular tachycardia. Hence, I had prescribed a Life Vest. She is brought in for single-chamber ICD implantation. She has a right bundle branch block with normal ND interval, QRS width of about 138 milliseconds, right bundle branch block. The patient is brought to the EP lab in a fasting state. Written informed consent was obtained prior to the procedure. The left shoulder area was prepped and draped as per protocol and 1% lidocaine was used for local anesthesia. Left pectoral area was prepped and draped as per protocol and 1% lidocaine was used for local anesthesia. A 3 cm incision made parallel to the deltopectoral groove, about 1.5 cm medial to it. The incision was carried down to the level of the pectoralis muscle. A subfascial pocket was made. Hemostasis was assured. The left axillary vein was accessed at a single point under fluoroscopy and via appropriately-sized introducer sheath, a single coil Medtronic ICD lead was positioned in the mid RV septum. This was a Medtronic model #6935M, 62 cm length and serial number [id number]. The R-waves were 7.3 mV, pacing impedance 704 ohms, pacing threshold 0.7 V at 0.5 milliseconds. Ten volt test negative. The lead was secured to the underlying pectoralis fascia using 2 nonabsorbable sutures. Pocket was irrigated with antibiotic solution. Leads were connected to the generator (Medtronic model number IIIU7R2, serial number [id number]). The lead and the generator were then placed in subfascial pocket. The wound was closed in 3 layers and dressed per protocol. The device was secured to the underlying pectoralis muscle also. ICD TESTING UNDER ANESTHESIA: Shock and T-wave protocol was used to induce ventricular fibrillation. This was adequately and appropriately detected at least sensitivity and successfully internally defibrillated with a 10-joule shock. The charge time was 4.3 seconds with shock impedance , shock impendence 70 ohms. No post shock noise. Prior to this, a 10-joule shock failed to defibrillate the patient. The device was programmed to 2 zones of therapy. Monitor zone of 150 beats per minute. VT zone 170 beats per minute, VF zone 214 beats per minute. Appropriate antitachycardia pacing cardioversion defibrillation programmed. First cardioversion 20 joules, first defibrillation at maximum output, appropriate antitachycardia pacing programmed. RESULT: Successful single-chamber ICD implantation for primary prevention of sudden cardiac in this lady with nonischemic cardiomyopathy with post viral myocarditis and cardiomyopathy without any significant improvement in left ventricular systolic dysfunction, ejection fraction is still less than %, class 2 heart failure symptoms on low-dose heart failure medications because of hypotension and intolerance to high dose of medications. History of fast nonsustained ventricular tachycardia. MMODL / IJN: [id number] /
[2019-01-30] MEDS ORDERED: LOSARTAN 25 MG TAB PO SCH (09:00)
[2019-01-30] MEDS ORDERED: FUROSEMIDE 20 MG TAB PO SCH (09:00)
[2019-01-30] MEDS: IVABRADINE HCL PO SCH (10:49)
[2019-01-30 11:28] VITALS: BP 105/68; PULSE 67; TEMP 97.6
[2019-01-30] MEDS ORDERED: SPIRONOLACTONE 25 MG TAB PO SCH (12:00)
--- NOTE | 2019-01-30 12:13 | P.PRLE ---
RE: Alondra Walsh Dear Dr. Guillermo Cantu underwent single-chamber ICD implantation for primary prevention of sudden cardiac . Management of severe nonischemic cardio myopathy with congestive heart failure class II, right bundle branch block pattern and documented fast nonsustained VT, following development of post viral cardio myopathy/myocarditis. The left ventricular ejection fraction has not improved enough over the last 6 months of medical treatment. Coronary arteries are normal. However heart failure has definitely improved on medical treatment I will continue current medications without any changes in she will follow-up with you as well as myself as previously scheduled along with follow-up in the device clinic Thank you for entrusting me with the care of the patient Warm regards Sincerely Percy Javier
--- NOTE | 2019-01-30 13:31 | P.DS ---
Providers Attending physician: Percy Javier Primary care physician: [facility] Course: Patient is doing well. She is sitting comfortably in bed. Other than mild discomfort over the ICD site she has no other pain no chest discomfort she is not dizzy or lightheaded when she walks around No breathing trouble at rest nor orthopnea Blood pressure 114/54 mmHg pulse rate in the 60s afebrile 97.6F Breath sounds are clear no rhonchi no crackles ICD site is healed well. Minimal soakage no hematoma at Chest x-ray No pneumothorax ICD was interrogated and was within normal limits normal function Impression Viral myocarditis with persistent cardiomyopathy and heart failure symptoms Fast nonsustained ventricular tachycardia Normal coronary arteries Class II CHF chronic While heart failure symptoms have improved and are currently at class II CHF, cardio myopathy persists despite medical treatment for over 6 months She is on guideline directed medical treatment Single chamber ICD implanted for primary prevention of sudden cardiac Plan Continue medical treatment Discharge home after completion of IV antibiotics and follow-up in the office within a week Plan - Discharge Summary Discharge Rx Participant: No New Discharge Prescriptions: Continue Spironolactone [Aldactone] 25 mg PO 1200 Ivabradine HCl [Corlanor] 5 mg PO BID Carvedilol [Coreg] 1.5625 mg PO BID Furosemide [Lasix] 20 mg PO DAILY Atorvastatin [Lipitor] 10 mg PO W/SUPPER Losartan [Cozaar] 25 mg PO DAILY Discharge Medication List Atorvastatin [Lipitor] 10 mg PO W/SUPPER 10/23/18 [History] Carvedilol [Coreg] 1.5625 mg PO BID 10/23/18 [History] Furosemide [Lasix] 20 mg PO DAILY 10/23/18 [History] Ivabradine HCl [Corlanor] 5 mg PO BID 10/23/18 [History] Spironolactone [Aldactone] 25 mg PO 1200 10/23/18 [History] Losartan [Cozaar] 25 mg PO DAILY 01/29/19 [History] Follow up Appointment(s)/Referral(s): Percy Javier MD [STAFF PHYSICIAN] - 1 Week (Device clinic follow-up in 5 days Follow-up withFollow-up with Dr. Javier/Maribel Inman/Jessica Dumas in 3 months Appointment made with device clinic for SaturdayFebruary 02 @ 3pm.) Activity/Diet/Wound Care/Special Instructions: PATIENT EDUCATION MATERIAL Instructions following a heart rhythm device implant. 1. Keep dressing DRY for 5 DAYS. You may cover the area with Saran or Cling Wrap, prior to a shower. 2. The dressing will be removed in the Device Clinic at [facility]. Absorbable sutures were used to close the wound. 3. Avoid raising the left arm above the shoulder level. 4 week restriction 4. Avoid arm movements, like backscratching, rubbing the head, or pulling on a cord. 4 weeks restriction 5. Gentle range of motion movements of the shoulder, closest to the incision should be performed to avoid a frozen shoulder. (Pendulum exercises of the shoulder) 6. The opposite arm may be used freely. 7. Avoid driving for 7 days. 8. Avoid activities such as golfing, swimming, weed whacking, lifting more than 10 pounds weight, bowling, gymnastics and weight training/lifting. (6 weeks restriction) 9. Activities such as wood chopping with an axe, pull-ups in the gymnasium, power lifting, arc-welding, being close to home induction cooktops will always be a problem. 10. Arm sling is only a reminder not to raise the arm above the head. You do not need to keep the arm completely immobilized. Your free to move the arm and use it and for normal activities. In case of any problems, please call [facility], Abner Cui, @ [phone], Attention: Device Clinic Device clinic follow-up in 5 days Follow-up with primary panel sewer in 3 months Discharge Disposition: HOME SELF-CARE
== END 2019-01-30 11:35 | disposition home or self-care (01) ==
LOC: CATHEP 10:26 → 1SOBS 13:50 → CATHEP 01-30 11:35
PROVIDERS: ATTEND Internal Medicine Clinical Cardiac Electrophysiology
DX: I42.0 Dilated cardiomyopathy (principal); I40.0 Infective myocarditis; I11.0 Hypertensive heart disease with heart failure; I47.2 Ventricular tachycardia; I45.10 Unspecified right bundle-branch block; I50.9 Heart failure, unspecified; Z79.899 Other long term (current) drug therapy; Z90.49 Acquired absence of other specified parts of digestive tract
CPT/HCPCS: 33249; 81025; 71046; C1769 ×4; C1892; C1730; C1895; C1722; J2250; J0690 ×3; J2001; J3010; J0131; J2370; J2704; Q9966

== ENCOUNTER → 2019-02-10 | Outpatient (CLI) | payer BC, OTHER ==
--- NOTE | 2019-02-10 12:26 | MM ---
Reason for exam: additional evaluation requested from abnormal screening. Last mammogram was performed 1 month ago. History: Benign left breast aspiration of the left breast, August 13, 2011. Physical Findings: Nurse did not find any significant physical abnormalities on exam. MG 3D Work Up W/Cad RT Spot compression CC, spot compression MLO, and ML view(s) were taken of the right breast. Prior study comparison: January 21, 2019, bilateral MG 3d screening mammo w/cad. April 23, 2016, bilateral MG 3d screening mammo w/cad. The breast tissue is heterogeneously dense. This may lower the sensitivity of mammography. Subareolar asymmetric density on the MLO view becomes less defined on spot 3D. Dense tissues laterally. These results were verbally communicated with the patient and result sheet given to the patient on 02/10/19. ASSESSMENT: Incomplete: need additional imaging evaluation, BI-RAD 0 RECOMMENDATION: Ultrasound of the right breast. (7-11 o'clock)
--- NOTE | 2019-02-10 13:16 | USB ---
Reason for exam: additional evaluation requested from abnormal screening. History: Benign left breast aspiration of the left breast, August 13, 2011. US Breast Workup Limited RT Right limited breast ultrasound including focal area of concern, retroareolar and axilla demonstrates a 0.5 x 0.4 x 0.3cm oval, cystic, benign lesion at 8 o'clock, a 0.4 x 0.5 x 0.3cm oval, cystic, benign lesion at 11 o'clock, a 0.6 x 0.7 x 0.4cm oval, cystic, benign lesion at 11 o'clock and a 1.3 x 1.0 x 0.6cm oval node at the axilla, benign morphology. These results were verbally communicated with the patient and result sheet given to the patient on 02/10/19. ASSESSMENT: Probably benign, BI-RAD 3 RECOMMENDATION: Follow-up diagnostic mammogram of the right breast in 6 months.
== END | disposition home or self-care (01) ==
LOC: RADMAMWWP 10:22
PROVIDERS: ATTEND Obstetrics & Gynecology
DX: R92.8 Other abnormal and inconclusive findings on diagnostic imaging of breast (principal)
CPT/HCPCS: 77061; 77065

== ENCOUNTER 2019-09-01 14:11 | Emergency (ER) | payer BC, OTHER ==
[2019-09-01] MEDS ORDERED: NITROGLYCERIN OINT 1 INCH/GM PACKET TOPICAL STA (15:00)
[2019-09-01] MEDS ORDERED: ASPIRIN 81 MG PO STA (15:00)
--- NOTE | 2019-09-01 15:19 | ED ---
General Adult HPI - General Chief complaint: Chest Pain Stated complaint: Chest Pain Time Seen by Provider: 09/01/19 14:45 Source: patient, RN notes reviewed Mode of arrival: ambulatory Limitations: no limitations - History of Present Illness Initial comments: Patient is a pleasant 49-year-old female presenting to the emergency department with complaints of chest discomfort. Onset of symptoms was this morning when walking upstairs to work. Patient has a mild ache in her chest with radiation to the left arm. Patient does experience dyspnea upon exertion only. Patient may have been a little bit sweaty earlier. No nausea. No history of similar symptoms previously. Patient does have defibrillator secondary to left ventricular hypertrophy. - Related Data Home Medications Medication Instructions Recorded Confirmed Atorvastatin [Lipitor] 10 mg PO W/SUPPER 10/23/18 01/29/19 Carvedilol [Coreg] 1.5625 mg PO BID 10/23/18 01/29/19 Furosemide [Lasix] 20 mg PO DAILY 10/23/18 01/29/19 Ivabradine HCl [Corlanor] 5 mg PO BID 10/23/18 01/29/19 Spironolactone [Aldactone] 25 mg PO 1200 10/23/18 01/29/19 Losartan [Cozaar] 25 mg PO DAILY 01/29/19 01/29/19 Allergies Allergy/AdvReac Type Severity Reaction Status Date / Time No Known Allergies Allergy Verified 01/29/19 10:46 Review of Systems ROS Statement: Those systems with pertinent positive or pertinent negative responses have been documented in the HPI. ROS Other: All systems not noted in ROS Statement are negative. Constitutional: Denies: fever Eyes: Denies: eye pain ENT: Denies: ear pain Respiratory: Denies: cough Cardiovascular: Reports: chest pain Endocrine: Reports: fatigue Gastrointestinal: Denies: abdominal pain Genitourinary: Denies: dysuria Musculoskeletal: Denies: back pain Skin: Denies: rash Neurological: Denies: weakness Past Medical History Past Medical History: Chest Pain / Angina Additional Past Medical History / Comment(s): enlarged heart, SOB, nonischemic cardiomyopathy, history of ventricular tachycardia History of Any Multi-Drug Resistant Organisms: None Reported Past Surgical History: Cholecystectomy Past Anesthesia/Blood Transfusion Reactions: No Reported Reaction Past Psychological History: No Psychological Hx Reported Smoking Status: Never smoker Past Alcohol Use History: None Reported Past Drug Use History: None Reported - Past Family History Mother Family Medical History: No Reported History General Exam Limitations: no limitations General appearance: alert, in no apparent distress Head exam: Present: normocephalic Eye exam: Present: normal appearance Neck exam: Present: normal inspection Respiratory exam: Present: normal lung sounds bilaterally. Absent: chest wall tenderness Cardiovascular Exam: Present: regular rate, normal rhythm, normal heart sounds Expanded Peripheral pulses: 2+: Radial (R), Radial (L), Posterior Tibialis (R), Posterior Tibialis (L), Dorsalis Pedis (R), Dorsalis Pedis (L) GI/Abdominal exam: Present: soft. Absent: tenderness Extremities exam: Present: normal inspection. Absent: pedal edema, calf tenderness Neurological exam: Present: alert Psychiatric exam: Present: normal affect, normal mood Skin exam: Present: normal color Course Vital Signs 09/01/19 09/01/19 14:14 15:30 Temperature 98.3 F Pulse Rate 64 54 L Respiratory 19 20 Rate Blood Pressure 94/46 106/42 O2 Sat by Pulse 100 98 Oximetry EKG Findings - EKG Comments: EKG Findings:: Sinus bradycardia 55. [place] 134. QRS 80. QT 4:30. QTC 411. Normal axis. Normal QRS. No acute ST change. Medical Decision Making - Medical Decision Making Patient reevaluated and resting comfortably in bed. Patient updated on results and plan. Case was discussed in detail with Dr. Inman, who will admit nikole spear for Dr. Li. - Lab Data Result diagrams: 09/01/19 15:30 09/01/19 15:30 Lab Results 09/01/19 09/01/19 09/01/19 Range/Units 15:30 15:30 15:30 WBC 8.9 (3.8-10.6) k/uL RBC 4.22 (3.80-5.40) m/uL Hgb 13.3 (11.4-16.0) gm/dL Hct 38.4 (34.0-46.0) % MCV 91.1 (80.0-100.0) fL MCH 31.6 (25.0-35.0) pg MCHC 34.6 (31.0-37.0) g/dL RDW 12.6 (11.5-15.5) % PT 10.1 (9.0-12.0) sec INR 1.0 (<1.2) APTT 24.6 (22.0-30.0) sec D-Dimer 0.26 (<0.60) mg/L FEU Sodium 136 L (137-145) mmol/L Potassium 3.8 (3.5-5.1) mmol/L Chloride 100 (98-107) mmol/L Carbon Dioxide 31 H (22-30) mmol/L Anion Gap 5 mmol/L BUN 19 H (7-17) mg/dL Creatinine 0.92 (0.52-1.04) mg/dL Est GFR (CKD-EPI)AfAm 86 (>60 ml/min/1.73 sqM) Est GFR (CKD-EPI)NonAf 75 (>60 ml/min/1.73 sqM) Glucose 80 (74-99) mg/dL Calcium 8.8 (8.4-10.2) mg/dL Total Bilirubin 0.6 (0.2-1.3) mg/dL AST 23 (14-36) U/L ALT 13 (4-34) U/L Alkaline Phosphatase 75 (38-126) U/L Troponin I (0.000-0.034) ng/mL Total Protein 6.5 (6.3-8.2) g/dL Albumin 3.9 (3.5-5.0) g/dL 09/01/19 Range/Units 15:30 WBC (3.8-10.6) k/uL RBC (3.80-5.40) m/uL Hgb (11.4-16.0) gm/dL Hct (34.0-46.0) % MCV (80.0-100.0) fL MCH (25.0-35.0) pg MCHC (31.0-37.0) g/dL RDW (11.5-15.5) % PT (9.0-12.0) sec INR (<1.2) APTT (22.0-30.0) sec D-Dimer (<0.60) mg/L FEU Sodium (137-145) mmol/L Potassium (3.5-5.1) mmol/L Chloride (98-107) mmol/L Carbon Dioxide (22-30) mmol/L Anion Gap mmol/L BUN (7-17) mg/dL Creatinine (0.52-1.04) mg/dL Est GFR (CKD-EPI)AfAm (>60 ml/min/1.73 sqM) Est GFR (CKD-EPI)NonAf (>60 ml/min/1.73 sqM) Glucose (74-99) mg/dL Calcium (8.4-10.2) mg/dL Total Bilirubin (0.2-1.3) mg/dL AST (14-36) U/L ALT (4-34) U/L Alkaline Phosphatase (38-126) U/L Troponin I <0.012 (0.000-0.034) ng/mL Total Protein (6.3-8.2) g/dL Albumin (3.5-5.0) g/dL - Radiology Data Radiology results: image reviewed (Chest x-ray shows no acute process) Disposition Clinical Impression: Chest pain Disposition: ADMITTED IP TO THIS [facility] Is patient prescribed a controlled substance at d/c from ED?: No Referrals: Willy Li DO [Primary Care Provider] - 1-2 days Decision Time: 16:59
[2019-09-01 15:35] VITALS: RESP 20
[2019-09-01 15:47] LABS: Albumin 3.9 g/dL (3.5-5.0); Calcium 8.8 mg/dL (8.4-10.2); Potassium 3.8 mmol/L (3.5-5.1); Total Bilirubin 0.6 mg/dL (0.2-1.3); Total Protein 6.5 g/dL (6.3-8.2)
--- NOTE | 2019-09-01 16:00 | XR ---
EXAMINATION TYPE: XR chest 2V DATE OF EXAM: 09/01/2019 COMPARISON: Prior chest x-ray 01/30/2019 HISTORY: Chest pain TECHNIQUE: Frontal and lateral views of the chest are obtained. FINDINGS: There is no focal air space opacity, pleural effusion, or pneumothorax seen. The cardiac silhouette size is within normal limits. The osseous structures are intact. There is a generator in the left pectoral region, intracardiac defibrillator lead present in the right ventricle. There are overlying cardiac leads. There is a spinal curvature. IMPRESSION: No acute cardiopulmonary process.
[2019-09-01 16:16] LABS: D-Dimer 0.26 mg/L FEU (<0.60); Partial Thromboplastin Time 24.6 sec (22.0-30.0); Prothrombin Time 10.1 sec (9.0-12.0)
[2019-09-01 16:23] LABS: Basophils # (A) 0.1 k/uL (0-0.2); Basophils % (A) 2 %; Eosinophils # (A) 0.1 k/uL (0-0.7); Eosinophils % (A) 1 %; HCT 38.4 % (34.0-46.0); HGB 13.3 gm/dL (11.4-16.0); Lymphocytes # (A) 1.7 k/uL (1.0-4.8); Lymphocytes % (A) 19 %; MCH 31.6 pg (25.0-35.0); MCHC 34.6 g/dL (31.0-37.0); MCV 91.1 fL (80.0-100.0); Mean Platelet Volume 11.7; Monocytes # (A) 0.5 k/uL (0-1.0); Monocytes % (A) 6 %; Neutrophils # (A) 6.2 k/uL (1.3-7.7); Neutrophils % (A) 70 %; RBC 4.22 m/uL (3.80-5.40); RDW 12.6 % (11.5-15.5); WBC 8.9 k/uL (3.8-10.6)
[2019-09-01 16:59] LABS: Platelet Count 173 k/uL (150-450)
[2019-09-01] MEDS ORDERED: NITROGLYCERIN SL TABS 0.4 MG TAB SUBLINGUAL PRN (17:00)
[2019-09-01] MEDS ORDERED: ATORVASTATIN 10 MG TAB PO SCH (17:30)
[2019-09-01 17:55] VITALS: BP 98/56; PULSE 61; TEMP 98.2
[2019-09-01] MEDS ORDERED: NITROGLYCERIN OINT 1 INCH/GM PACKET TOPICAL SCH (18:00)
[2019-09-01] MEDS ORDERED: IVABRADINE HCL 5 MG PO SCH (21:00)
[2019-09-01] MEDS ORDERED: CARVEDILOL 3.125 MG TAB PO SCH (21:00)
[2019-09-02] MEDS ORDERED: LOSARTAN 25 MG TAB PO SCH (09:00)
[2019-09-02] MEDS ORDERED: FUROSEMIDE 20 MG TAB PO SCH (09:00)
[2019-09-02] MEDS ORDERED: ASPIRIN 325 MG TAB PO SCH (09:00)
[2019-09-02] MEDS ORDERED: SPIRONOLACTONE 25 MG TAB PO SCH (12:00)
== END 2019-09-01 18:15 | disposition left against medical advice (07) ==
LOC: EC 14:11 → 1SOBS 17:00 → UNDOADMOB 17:00 → EC 18:15
DX: R07.89 Other chest pain (principal); R06.09 Other forms of dyspnea; I42.9 Cardiomyopathy, unspecified; I51.7 Cardiomegaly; Z79.899 Other long term (current) drug therapy
CPT/HCPCS: 36415; 71046; 80053; 84484; 85025; 85379; 85610; 85730; 93005; 99285

== ENCOUNTER → 2020-02-09 | Outpatient (CLI) | payer BC ==
--- NOTE | 2020-02-11 07:38 | MM ---
Reason for exam: screening (asymptomatic). Last mammogram was performed 1 year ago. History: Benign left breast aspiration of the left breast, August 13, 2011. Physical Findings: A clinical breast exam by your physician is recommended on an annual basis and results should be correlated with mammographic findings. MG 3D Screening Mammo W/Cad Bilateral CC and MLO view(s) were taken. Prior study comparison: February 10, 2019, right breast MG 3d work up w/cad RT. January 21, 2019, bilateral MG 3d screening mammo w/cad. The breast tissue is extremely dense which could obscure a lesion on mammography. Finding: There are typically benign round, regional and grouped calcifications in the left breast. Asymmetric breast tissue right inferior aspect. There is no discrete abnormality. New axillary pacemaker. ASSESSMENT: Benign, BI-RAD 2 RECOMMENDATION: Routine screening mammogram of both breasts in 1 year.
== END | disposition home or self-care (01) ==
LOC: RADMAMWWP 15:52
PROVIDERS: ATTEND Obstetrics & Gynecology
DX: Z12.31 Encounter for screening mammogram for malignant neoplasm of breast (principal)
CPT/HCPCS: 77063; 77067

== ENCOUNTER → 2022-03-07 | Outpatient (CLI) | payer BC ==
--- NOTE | 2022-03-08 19:17 | MM ---
Reason for Exam: Screening (asymptomatic). Last mammogram was performed 2 year(s) and 1 month(s) ago. Patient History: Menarche at age 14. First Full-Term at age 20. 08/13/2011, Benign Cyst Aspiration on the left side. Last menstrual period: 02/14/2022 Risk Values: Anahy 5 year model risk: 0.7%. NCI Lifetime model risk: 6.6%. Prior Study Comparison: 01/21/2019 Bilateral Screening Mammogram, [facility]. 02/10/2019 Right Diagnostic Mammogram, [facility]. 02/09/2020 Bilateral Screening Mammogram, [facility]. Tissue Density: The breast tissue is heterogeneously dense. This may lower the sensitivity of mammography. Findings: Analyzed By CAD. Generator device along the left breast pectoralis major. There is no suspicious group of microcalcifications or new suspicious mass in either breast. Overall Assessment: Benign, BI-RAD 2 Management: Screening Mammogram of both breasts in 1 year. 1. Patient should continue monthly self breast exams. 2. A clinical breast exam by your physician is recommended on an annual basis. 3. This exam should not preclude additional follow-up of suspicious palpable abnormalities. Electronically signed and approved by: Naheed Funes M.D. Radiologist
== END | disposition home or self-care (01) ==
LOC: RADMAMWWP 15:43
PROVIDERS: ATTEND Obstetrics & Gynecology
DX: Z12.31 Encounter for screening mammogram for malignant neoplasm of breast (principal)
CPT/HCPCS: 77063; 77067

== ENCOUNTER → 2023-03-28 | Outpatient (CLI) | payer OTHER ==
--- NOTE | 2023-03-30 17:06 | MM ---
Reason for Exam: Screening (asymptomatic). Last mammogram was performed 1 year(s) and 1 month(s) ago. Patient History: Menarche at age 14. First Full-Term at age 20. 08/13/2011, Benign Cyst Aspiration on the left side. Risk Values: Anahy 5 year model risk: 0.7%. NCI Lifetime model risk: 6.5%. Prior Study Comparison: 02/10/2019 Right Diagnostic Mammogram, [facility]. 02/09/2020 Bilateral Screening Mammogram, [facility]. 03/07/2022 Bilateral MG 3D screening mammo w/cad, [facility]. Tissue Density: The breast tissue is heterogeneously dense. This may lower the sensitivity of mammography. Findings: Analyzed By CAD. Possible obscured mass central outer aspect of the right breast on the CC view anterior to middle depth. However, this may represent superimposition shadow as no clear correlate is identified on tomographic views of the right breast in the MLO projection. Further evaluation is recommended. Otherwise, no significant change. Overall Assessment: Incomplete: need additional imaging evaluation, BI-RAD 0 Management: Special View Mammogram of the right breast. Diagnostic Breast Ultrasound of the right breast. Additional views right breast including spot 3-D CC, 3-D CC rolled medial, and 3-D ML views. Whole right breast ultrasound given dense tissues. [facility] will attempt to contact patient to return for supplemental views and ultrasound if indicated. Electronically signed and approved by: Naheed Funes M.D. Radiologist
== END | disposition home or self-care (01) ==
LOC: RADMAMWWP 15:25
PROVIDERS: ATTEND Obstetrics & Gynecology
DX: Z12.31 Encounter for screening mammogram for malignant neoplasm of breast (principal)
CPT/HCPCS: 77063; 77067